=== PATIENT | female | born 1990 | race Caucasian/White ===

== ENCOUNTER 2021-06-05 11:43 | Emergency (ER) | payer OTHER, SELFPAY ==
[2021-06-05 12:15] VITALS: BP 129/87; PULSE 96; RESP 16; TEMP 37.1; O2SAT 97
--- NOTE | 2021-06-05 12:42 | ED.GENADULT ---
HPI - General Adult General Chief complaint: Ear Stated complaint: ear pain/facial swelling Time Seen by Provider: 06/05/21 12:24 Source: patient Mode of arrival: ambulatory Limitations: no limitations History of Present Illness HPI narrative: Patient presents with chief complaint of pain to bilateral ears and throat over the past 6 days. Patient states that she has been trying to clean out her ears with a Q-tip because she feels there is fluid in them. Patient reports she feels like there is swelling under her ears. Patient denies fever, chills, drainage from her ears, cough, shortness of breath, chest pain or any other symptoms. Related Data Allergies Allergy/AdvReac Type Severity Reaction Status Date / Time cinnamon Allergy Unknown SWELLING Verified 08/04/19 10:47 zinc Allergy Unknown SKIN Unverified 08/04/19 10:47 BREAKDOWN Review of Systems Review of Systems: CONSTITUTIONAL: Denies fever, chills, or sweats. EYES: Denies visual changes, redness, or discharge. ENT: Reports otalgia and sore throat denies rhinorrhea, congestion CARDIOVASCULAR: Denies chest pain, palpitations, or edema. RESPIRATORY: Denies cough or dyspnea. GASTROINTESTINAL: Denies abdominal pain, nausea, vomiting, or diarrhea. GENITOURINARY: Denies dysuria or hematuria. SKIN: Denies rash or itching. MUSCULOSKELETAL: Denies back pain, joint pain, or myalgia. NEUROLOGIC: Denies headache, numbness, dizziness, or weakness. PSYCHIATRIC: Denies anxiety or depression. PMFSH Past Medical History Medical History (Updated 06/05/21 @ 13:05 by Hilario Christianson PA-C) ADD (attention deficit disorder) Anxiety Depression Pneumonia As a child Schizophrenia Surgical History Surgical History (Updated 08/04/19 @ 11:11 by OLGA Patel) History of orthopedic surgery Bilateral foot reconstruction for deformity Hx of tonsillectomy Family History Family History (Updated 08/04/19 @ 11:12 by OLGA Patel) Unknown Hypertension Diabetes mellitus Exam Narrative: GENERAL: Well-appearing, well-nourished, and in no acute distress. HEAD: Normocephalic, atraumatic. EYES: PERRLA and EOMI. ENT: Nares clear, no rhinorrhea or epistaxis. Mucous membranes moist. Oropharynx without tonsillar hypertrophy exudate or other lesions. Bilateral TMs pearly anderson nonbulging with clear serous fluid B/L l>r. Ear canals excoriated and tender and swollen. NECK: Supple. No adenopathy or masses. ROM intact CHEST: Clear to auscultation. No respiratory distress. No wheezes rales or rhonchi HEART: Regular rate and rhythm. SKIN: Warm, dry, no rash. NEURO: No focal deficits. Alert and oriented x3. PSYCH: Normal mood and affect. Course Vital Signs Vital signs: Vital Signs Temperature 98.8 F 06/05/21 12:15 Pulse Rate 96 06/05/21 12:15 Respiratory Rate 16 06/05/21 12:15 Blood Pressure 129/87 06/05/21 12:15 Pulse Oximetry 97 06/05/21 12:15 Temperature 98.8 F 06/05/21 12:15 Pulse Rate 90 06/05/21 13:58 Respiratory Rate 12 06/05/21 13:58 Blood Pressure 121/90 06/05/21 13:58 Pulse Oximetry 100 06/05/21 13:58 Medical Decision Making MDM Narrative Medical decision making narrative: Patient not have signs of posterior tympanic membrane at this time. Patient does have a lot of irritation in her ears and has been instructed to avoid sticking things into her ears as this will not help with the fluid on the opposite side of the tympanic membrane. The fluid is clear at this time and there is no sign of infection. Patient's throat is not erythematous there is no signs of peritonsillar abscess or epiglottitis. Patient does not have high potato voice. Patient has been instructed to take Tylenol and ibuprofen for discomfort if she can tolerate them. Patient will be started on antihistamine, Ciprodex and Flonase. Patient to follow-up with primary care your nose throat specialist for further evaluation and management. Vital Signs Vital S
[2021-06-05 13:58] VITALS: BP 121/90; PULSE 90; RESP 12; O2SAT 100
== END 2021-06-05 13:59 | disposition home or self-care (01) ==
PROVIDERS: Emergency Provider Emergency Medicine; PCP Internal Medicine
DX: H60.503 Unspecified acute noninfective otitis externa, bilateral (principal); H65.03 Acute serous otitis media, bilateral
CPT/HCPCS: 99283

== ENCOUNTER 2022-05-10 14:07 | Emergency (ER) | payer OTHER, SELFPAY ==
[2022-05-10 14:08] VITALS: BP 149/101; PULSE 85; RESP 16; TEMP 37.4; O2SAT 97
--- NOTE | 2022-05-10 14:18 | ED.GENADULT ---
HPI - General Adult General Chief complaint: Dental/Oral Stated complaint: mouth pain x 3 days Time Seen by Provider: 05/10/22 14:08 History of Present Illness HPI narrative: 31-year-old female presented to the emergency department for evaluation of 3 days of left-sided dental pain. Patient reports she does have a history of dental caries and is having some dental pain on the right. Patient states that the dental pain in the left has continued to worsen. Patient states she does have history of a fractured tooth on the left. Patient does report some associated left-sided ear pain. Patient denies any chest pain or shortness of breath. Patient denies any associated nausea vomiting diarrhea. Patient denies any difficulty breathing or swallowing. Patient did take ibuprofen for pain control prior to arrival. Related Data Allergies Allergy/AdvReac Type Severity Reaction Status Date / Time cinnamon Allergy Unknown SWELLING Verified 05/10/22 14:22 zinc Allergy Unknown SKIN Unverified 05/10/22 14:22 BREAKDOWN Review of Systems Review of Systems: CONSTITUTIONAL: Denies fever, chills, or sweats. EYES: Denies visual changes, redness, or discharge. ENT: See HPI CARDIOVASCULAR: Denies chest pain, palpitations, or edema. RESPIRATORY: Denies cough or dyspnea. GASTROINTESTINAL: Denies abdominal pain, nausea, vomiting, or diarrhea. GENITOURINARY: Denies dysuria or hematuria. SKIN: Denies rash or itching. MUSCULOSKELETAL: Denies back pain, joint pain, or myalgia. NEUROLOGIC: Denies headache, numbness, or weakness. PMFSH Past Medical History Medical History (Updated 05/10/22 @ 14:18 by Alex Alcantara MD) ADD (attention deficit disorder) Anxiety Depression Pneumonia As a child Schizophrenia Surgical History Surgical History (Updated 08/04/19 @ 11:11 by OLGA Patel) History of orthopedic surgery Bilateral foot reconstruction for deformity Hx of tonsillectomy Family History Family History (Updated 08/04/19 @ 11:12 by OLGA Patel) Unknown Hypertension Diabetes mellitus Exam Narrative: APPEARANCE: Well appearing, no pain, no distress, well-nourished. HEAD: normocephalic, atraumatic. Multiple dental caries, no drainable dental abscess. EYES: PERRLA/EOMI, conjunctivae clear. NOSE: Normal no drainage EARS:TMS clear with good light reflex. THROAT: Pharynx clear, no exudate. NECK: Supple. No adenopathy, no masses. RESPIRATORY: Airway patent, respirations nonlabored. Clear to auscultation bilaterally, no rales, rhonchi, wheezing. CARDIOVASCULAR: Regular rate and rhythm without murmurs rubs or gallops. ABDOMINAL: Soft, nontender, nondistended, normal bowel sounds MUSCULOSKELETAL: Moves all extremities. Strength/ROM intact, No edema, No calf tenderness. NEURO: Alert. Cranial nerves II through XII intact. Grossly intact SKIN: Warm, dry. Normal Color Course Course Emergency Course: Patient was started on antibiotics in the emergency department. Patient was encouraged to have close follow-up with a dentist Vital Signs Vital signs: Vital Signs Temperature 99.3 F 05/10/22 14:08 Pulse Rate 85 05/10/22 14:08 Respiratory Rate 16 05/10/22 14:08 Blood Pressure 149/101 H 05/10/22 14:08 Pulse Oximetry 97 05/10/22 14:08 Oxygen Delivery Room Air 05/10/22 14:08 Temperature 99.3 F 05/10/22 14:08 Pulse Rate 85 05/10/22 14:08 Respiratory Rate 16 05/10/22 14:08 Blood Pressure 149/101 H 05/10/22 14:08 Pulse Oximetry 97 05/10/22 14:08 Oxygen Delivery Room Air 05/10/22 14:08 Medical Decision Making Vital Signs Vital Signs: Vital Signs Temperature 99.3 F 05/10/22 14:08 Pulse Rate 85 05/10/22 14:08 Respiratory Rate 16 05/10/22 14:08 Blood Pressure 149/101 H 05/10/22 14:08 Pulse Oximetry 97 05/10/22 14:08 Oxygen Delivery Room Air 05/10/22 14:08 Temperature 99.3 F 05/10/22 14:08 Pulse Rate 85 05/10/22 14:08 Respiratory Rate 16 1
[2022-05-10] MEDS: AMOXICILLIN/CLAVULANATE K 875-125 MG TAB 1 TABLET PO (14:27)
[2022-05-10] MEDS: ACETAMINOPHEN 325 MG TABLET 650 MG PO (14:27)
== END 2022-05-10 14:41 | disposition home or self-care (01) ==
LOC: ANHED 14:31
PROVIDERS: Emergency Provider Emergency Medicine; PCP Internal Medicine
DX: K08.89 Other specified disorders of teeth and supporting structures (principal); K02.9 Dental caries, unspecified; Z79.51 Long term (current) use of inhaled steroids
CPT/HCPCS: 99283; A9270

== ENCOUNTER 2022-06-11 13:54 | Outpatient (CLI) | payer OTHER, SELFPAY ==
--- NOTE | ~2022-06-11 | MMUS_ITS ---
EXAMINATION: MM diagnostic yunior BI w maurizio, US breast BI limited HISTORY: Breast soreness. Clear nipple discharge. TECHNIQUE: Additional 3-D tomosynthesis images of the breasts were performed and synthetic 2-D images were generated. CAD analysis was submitted and interpreted. High resolution limited bilateral breast ultrasound was performed. COMPARISON: None BREAST PARENCHYMAL COMPOSITION: Breast composed of scattered areas of fibroglandular density FINDINGS: MAMMOGRAPHIC FINDINGS: There is focal asymmetry in the upper outer quadrant of the right breast, most likely benign intramam masoud lymph node. There is also a focal asymmetry in the upper outer quadrant of the left breast, also likely benign intramammary lymph node. No suspicious calcifications or architectural distortion. ULTRASOUND: Limited bilateral breast ultrasound: Normal heterogeneous echotexture without focal solid or cystic m ass. No heterogeneous echotexture. No discrete mass identified. IMPRESSION: 1. Probable benign bilateral breast asymmetries. No sonographic correlate. 2. Recommend 6 month follow-up diagnostic bilateral mammogram BI-RADS category 3, probably benign findings. Reviewed, dictated and finalized at location A. IMPRESSION: 1. Probable benign bilateral breast asymmetries. No sonographic correlate. 2. Recommend 6 month follow-up diagnostic bilateral mammogram BI-RADS category 3, probably benign findings.
== END 2022-06-11 13:55 | disposition home or self-care (01) ==
PROVIDERS: PCP Internal Medicine; Visit Provider Nurse Practitioner Obstetrics & Gynecology
DX: N64.52 Nipple discharge (principal); R92.8 Other abnormal and inconclusive findings on diagnostic imaging of breast
CPT/HCPCS: 76642; 77062; 77066; G0279

== ENCOUNTER 2023-12-20 08:33 | Emergency (ER) | payer OTHER, SELFPAY ==
[2023-12-20 08:50] VITALS: BP 102/66; PULSE 79; RESP 18; TEMP 36.3; O2SAT 96
--- NOTE | 2023-12-20 09:08 | ED.URI ---
HPI - URI/Sore Throat General Chief Complaint: Upper Respiratory Infection Stated Complaint: Sore Throat, Stomach Ache, Sinus Pressure Time Seen by Provider: 12/20/23 09:08 Source: patient Mode of arrival: ambulatory Limitations: no limitations History of Present Illness HPI Narrative: 32-year-old female presents with complaint of sore throat, cough, nasal congestion, headache, fatigue, body aches for 1 day. Unsure if she has had a fever. Afebrile at [facility]. Not taking any [id number] medications to treat symptoms because she states she cannot afford them. No chest pain or shortness of breath. Denies nausea vomiting diarrhea. All systems reviewed and negative except as noted above. Related Data Home Medications Medication Instructions Recorded Confirmed buspirone 10 mg tablet 10 mg PO BID 12/20/23 12/20/23 levonorgestrel 21 mcg/24 hr (up to See Rx Instructions .Route .COMPLEX 12/20/23 12/20/23 8 years) 52 mg intrauterine device (Mirena) sertraline 50 mg tablet 75 mg PO DAILY 12/20/23 12/20/23 trazodone 100 mg tablet 100 mg PO HS 12/20/23 12/20/23 ziprasidone HCl 80 mg capsule 80 mg PO DAILY 12/20/23 12/20/23 Allergies Allergy/AdvReac Type Severity Reaction Status Date / Time cinnamon AdvReac Intermediate SWELLING Verified 12/20/23 09:00 zinc AdvReac Mild SKIN Verified 12/20/23 09:00 BREAKDOWN Review of Systems Review of Systems: CONSTITUTIONAL: Denies fever . Reports chills, or sweats. EYES: Denies visual changes, redness, or discharge. ENT: reports rhinorrhea, congestion, sore throat. Denies otalgia. CARDIOVASCULAR: Denies chest pain, palpitations, or edema. RESPIRATORY: reports cough. Denies dyspnea. GASTROINTESTINAL: Denies abdominal pain, nausea, vomiting, or diarrhea. GENITOURINARY: Denies dysuria or hematuria. SKIN: Denies rash or itching. MUSCULOSKELETAL: Denies back pain, joint pain, or myalgia. NEUROLOGIC: Denies headache, numbness, or weakness. PSYCHIATRIC: Denies anxiety or depression. All other systems reviewed are negative, except as documented in HPI. [facility] Past Medical History Medical History (Updated 05/13/24 @ 09:35 by Lauren Bermudez NP) ADD (attention deficit disorder) Anxiety Depression Pneumonia As a child Schizophrenia Surgical History Surgical History (System 06/10/22 @ 15:26 by Romulo Cline) History of orthopedic surgery Bilateral foot reconstruction for deformity Hx of tonsillectomy Family History Family History (System 06/10/22 @ 15:26 by Romulo Cline) Unknown Hypertension Diabetes mellitus Mother Family history of coronary artery disease Other Family history of lymphoma Family history of malignant neoplasm Family history of malignant neoplasm of bone Family history of malignant neoplasm of ovary Family history of malignant neoplasm of uterus Social History Social History (System 06/10/22 @ 15:26 by Romulo Cline) Smoking status: Never smoker Alcohol intake: never Comments At time of signature, agree with nursing past medical, surgical, social and family history. There is no relevant family history pertinent to the presenting complaint. Exam Narrative: GENERAL: This is a well-nourished, well-developed patient, in no apparent distress. HEAD: normocephalic, atraumatic. EYES: PERRL. Sclera clear/white. Vision is grossly intact. EARS: External ears normal, auditory canals clear and without drainage, TMs normal without perforation. Hearing grossly intact. NOSE: External nose normal with moderate congestion, clear nasal drainage, erythema to bilateral nares. THROAT: Mucous membranes moist, Erythema without swelling or exudates. NECK: Neck supple, non-tender without lymphadenopathy, masses or thyromegaly. CARDIOVASCULAR: Regular rate and rhythm without murmurs, gallops, or rubs. RESPIRATORY: Clear to auscultation. Breath sounds equal bilaterally. No wheezes, rales, or rhonchi. SKIN: warm, Dry, intact wi
== END 2023-12-20 09:40 | disposition home or self-care (01) ==
PROVIDERS: Emergency Provider Nurse Practitioner Family
DX: J10.1 Influenza due to other identified influenza virus with other respiratory manifestations (principal); Z20.822 Contact with and (suspected) exposure to COVID-19; F41.9 Anxiety disorder, unspecified; F32.A Depression, unspecified; F20.9 Schizophrenia, unspecified
CPT/HCPCS: 87426; 87804; 99213; G0463